=== PATIENT | male | born 1955 | race Hispanic/Latino ===

== ENCOUNTER 2019-10-08 | Emergency (ER) | payer OTHER | END 2019-10-08 11:08 | disposition home or self-care (01) | CPT/HCPCS: 99283 ==

== ENCOUNTER 2021-01-23 13:02 | Day surgery (SDC) | payer OTHER ==
--- NOTE | 2021-01-20 13:59 | RAD REPORT ---
EXAM DESCRIPTION: RAD - Chest Pa And Lat (2 Views) - 01/20/2021 1:51 pm CLINICAL HISTORY: left heart cathpreop chest exam COMPARISON: None TECHNIQUE: Frontal and lateral views of the chest were obtained. FINDINGS: The lungs are clear. Heart size is normal and central vasculature is within normal limit s. No pleural effusion or pneumothorax seen. No acute bony finding noted. No aortic abnormality. IMPRESSION: No acute cardiopulmonary process.
[2021-01-20 14:14] LABS: Absolute Lymphocytes (CBC) 2.6 K/uL (0.7-4.9); Basophils % 1.8 % (0-1.3); Hematocrit 31.6 % (39.6-49.0); Lymphocytes % 31.8 % (15.3-44.8); MPV 7.9 fL (7.6-11.3); RBC Red Blood Cell Count 3.55 M/uL (4.33-5.43)
[2021-01-20 14:18] LABS: Protime INR 0.95
[2021-01-20 14:22] LABS: Potassium 4.8 mmol/L (3.5-5.1)
[~2021-01-23 13:02] MED LIST: HEPA 1000U/500MLS 2,000 UNIT/1,000 ML BAG IV ONE
[2021-01-23] MEDS ORDERED: NA CHLORIDE 0.9% 500 ML ONE (15:25)
[2021-01-23 16:09] VITALS: TEMP 97.8
[2021-01-23] MEDS ORDERED: MIDAZOLAM HCL 2 MG/2 ML INJ ONE (16:41)
[2021-01-23] MEDS ORDERED: HEPARIN 5000 UNIT/ML 1 ML VIAL ONE (16:41)
[2021-01-23] MEDS ORDERED: FENTANYL CITR 100 MCG/2 ML ONE (16:42)
[2021-01-23] MEDS ORDERED: ATROPINE SULF 1 MG/10 ML SYR IV ONE (16:42)
[2021-01-23] MEDS ORDERED: VERAPAMIL HCL 10 MG/4 ML VIAL IV ONE (16:42)
[2021-01-23] MEDS ORDERED: HEPA 1000U/500MLS 1,000 UNIT/500 ML BAG IV ONE (17:26)
[2021-01-23 18:20] VITALS: O2SAT 99
--- NOTE | 2021-01-23 18:59 | OP ---
Date of Procedure: 01/23/2021 Surgeon: JULIO C HOLM Procedures Performed: 1.Selective coronary angiogram. 2.Evidence of an LAD. Indication: Unstable angina. Access: Right radial artery 6-Danish closed with TR band. Complications: None. Bleeding: Less than 10 mL. Description Of Procedure: After risks, benefits, alternatives were explained, the patient agreed to the procedure and signed informed consent and then we accessed the right radial artery using eGenerationsi c micropuncture kit, placed a 6-Danish slender sheath and then we took a 5-Danish [place] 4.0 into the aortic root, engaged left main and right coronary artery, took standard views and then I took ___ left 3.5 into the aortic root over a J-wire, engaged left main and then gave systemic heparin to assure ACT level above 250 and gave 180 of Brilinta and then took a Run-Through wire across this area of stenosis of the LAD and tried to pass IVUS in the left main and it was patent with some calcifica tions and also heavily calcified stenosis in the mid LAD where the IVUS catheter would get stuck. De cided to abort the procedure for a PCI with atherectomy, so we removed the wire and took final angiog stacey. There were no complications. Then, we removed the catheter and sheath and placed TR band. Findings: 1.Left main; large with luminal irregularities. 2.LAD; mid severe 90% to 95% stenosis, heavily calcified, followed by 2 focal mid lesions 80% each a nd heavily calcified with BRANDIN-3 flow in the vessel. Diagonal branches are patent. 3.Left circumflex; large, dominant with ostial OM1 branch 60% stenosis and distal left circumflex 50 % stenosis. 4.RCA; very small, non-dominant. No significant disease. Conclusion: Severe LAD stenosis, heavily calcified. Plan: Transfer to [place] for atherectomy and PCI of the mid LAD tomorrow. The patient will be high risk due to the unstable angina symptoms and severe stenosis of the LAD and to be done as an outpati ent. SR/MODL Voice ID: [id number] Report ID: [id number]
[2021-01-23 21:04] VITALS: BP 113/50
== END 2021-01-23 21:39 | disposition short-term general hospital (02) ==
LOC: CCL 13:02
PROVIDERS: ATTEND Internal Medicine
DX: I25.110 Atherosclerotic heart disease of native coronary artery with unstable angina pectoris (principal); I10 Essential (primary) hypertension; R55 Syncope and collapse; E11.9 Type 2 diabetes mellitus without complications; Z87.891 Personal history of nicotine dependence; Z79.899 Other long term (current) drug therapy; Z88.0 Allergy status to penicillin
CPT/HCPCS: 85025; 80048; 36415; 85610; 82947 ×2; 85730; 71046; 92978; 93458; C1893; J1644 ×3; J2250; J3010; J7040

== ENCOUNTER 2021-05-16 14:53 | Emergency (ER) | payer OTHER ==
--- OUTSIDE RECORDS SUMMARY | 2021-05-16 14:56 | XMS REPORT | Continuity of Care Document ---
:1955 Author Organization [facility] t Address [address] [place] [address] Care Team Providers Name Role Phone Hilary Quesada Primary Care Physician LUCRETIA Attending Clinician Unavailable Rehab, Cardiac Attending Clinician Unavailable Sergio ELLINGTON Attending Clinician Cecelia Jimenez Attending Clinician Unavailable LUCRETIA Admitting Clinician Unavailable RICHIE Admitting Clinician Unavailable ABEL POWELL Admitting Clinician Unavailable Payers Payer Name Policy Type Policy Number Effective Date Expiration Date Dolly green [employer] [id number] 2020 00:00:00 Problems Condition Condition Condition Status Onset Resolution Last Treating Co mments Source Name Details Category Date Date Treatment Clinician Date 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 2020-0 U nivers protein-ca protein-ca 9-29 it y of [facility] 00:00: [place] malnutriti malnutriti 00 Me dical on on Branch Pyelonephr Pyelonephr Disease Active 2020-0 U nivers itis itis 9-22 ity of 00:00: [place] 00 Medical Branch Allergies, Adverse Reactions, Alerts Allergy Allergy Status Severity Reaction(s) Onset Inactive Treating Comm ents Source Name Type Date Date Clinician Penicill Propensi Active Hives Univer s ins ty to 03-21 ity of adverse 00:00: [place] reaction 00 Medical s Branch Penicill DA Active U [facility]ES [facility] ins 01-27 [place] [facility] Penicill DA Active U [facility] ins 01-27 [place] 00:[facility]: [facility] PENICILL Allergy Active High Hives [facility] INS 01-23 00:00: 00 Social History Social Habit Start Date Stop Date Quantity Comments Source History of tobacco Cigarette Smoker University of use [facility] History SDAL University o f Alcohol Frequency [facility] edical History [facility] University o f Alcohol Std Drinks [facility] History [facility] o f Alcohol Binge [facility] al [place] Exposure to Not sure University of SARS-CoV-2 (event) [facility] Alcohol intake 2021-04-27 2021-04-27 Ex-drinker University of 00:00:00 00:00:00 (finding) [facility] Cigarettes smoked 2021-03-23 2021-03-23 Univers ity of current (pack per 00:00:00 00:00:00 ) - Reported Branch Cigarette 2021-03-23 2021-03-23 University of pack-years 00:00:00 00:00:00 [facility] Alcohol Comment 2021-03-23 2021-03-23 quit drinking Univer sity of 00:00:00 00:00:00 about 2 months [facility] ago. Used to Branch drink 1-2 beers on the weekend Tobacco Comment 2021-03-23 2021-03-23 Patient quit Univers ity of 00:00:00 00:00:00 smoking in his [facility] 20s. Branch Sex [birth year] Universit y of 00:00:00 00:00:00 [facility] Smoking Status Start Date Stop Date Source Former smoker 2021-03-23 00:00:00 2021-03-23 00:00:00 Universi ty of [facility] Medications Ordered Filled Start Stop Current Ordering Indication Dosage Frequency Signature Comments Components Source Medication Medication Date Date Medication? Clinician (SIG) Name Name insulin 2020-07- Yes [id number] [id number] inject 8 U nivers lispro 0-19 04-18 Units ity of (HUMALOG 00:00: 04:59 under the [place] as TRINI 00 :00 skin daily Medical KWIKPEN for 180 Branch U-100) 100 days. unit/mL inph Cholecalcif 2020-07 Yes 1{capsu Take 1 U nivers ernie, 0-13 le} capsule by ity of Vitamin D3, 06:00: mouth [place] 50 mcg 05 daily. Medical (2,000 Branch unit) capsule multivit,th 2020-07 Yes 1{tbl} Take 1 Un hallie x,calcium,i 0-13 tablet by ity of deanne,mins 06:00: mouth [place] (MULTIVITAM 05 daily. Medica l IN AND Branch MINERAL ORAL) timoloL 0.5 2020-07 Yes 1[drp] Place 1 U nivers % 0-13 Drop in ity of ophthalmic 06:00: [place] eyes [place] solution 05 2 (two) Medical times Branch daily. vitamin 2020-07 Yes [id number] 1000ug Take 1 Un hallie B-12 1,000 0-12 tablet by ity of mcg tablet 00:00: mouth [place] 00 daily. Medical Branch amiodarone 2020-07 Yes [id number] 200mg Take 1 Univers 200 mg 0-12 tablet by ity of tablet 00:00: mouth [place] 00 daily. Medical Branch foLIC acid 2020-07 Yes [id number] 1mg Take 1 U nivers 1 mg tablet 0-12 tablet by ity of 00:00: mouth [place] 00 daily. Medical Branch pantoprazol 2020-07 Yes [id number] 40mg Take 1 Univers e 40 mg EC 0-12 tablet by ity of tablet 00:00: mouth [place] 00 daily. Medical Branch aspirin 81 2020-07- Yes [id number] 81mg Take 1 Univers mg chewable 0-12 04-11 tablet by it y of tablet 00:00: 04:59 mouth [place] 00 :00 daily for Medical 180 days. Branch rosuvastati 2020-07 Yes [id number] 40mg Take 1 Univers n 40 mg 0-11 tablet by ity of tablet 00:00: mouth at [place] 00 bedtime. Medical Branch traZODone 2020-07 Yes [id number] 50mg Take 1 Un hallie 50 mg 0-11 tablet by ity of tablet 00:00: mouth at [place] 00 bedtime. Medical Branch ticagrelor 2020-07 Yes [id number] 90mg Take 1 U nivers 90 mg 0-11 tablet by ity of tablet 00:00: mouth 2 (two) Medical times Branch daily. midodrine 2020-07 Yes [id number] 10mg Take 1 Un hallie 10 mg 0-11 tablet by ity of tablet 00:00: mouth 3 [place] (three) Medical times Branch daily. nitroglycer 2020-[id number] 1 Univers in 0.4 mg 0-11 tablet ity of sublingual 00:00: under the [place] tablet 00 tongue Medical every 5 Branch (five) minutes as needed for Chest pain. semaglutide 2020-07 Yes [id number] 3mg Take 3 mg Univers (RYBELSUS) 0-11 by mouth ity o f 3 mg Tab 00:00: daily. Medical Branch blood sugar 2020-07 Yes [id number] Use as Univers diagnostic 0-11 directed ity o f (BLOOD 00:00: [place] GLUCOSE 00 Medical TEST) strip Branch lancets 30 2020-07 Yes [id number] Use as U nivers gauge Misc 0-11 directed ity o f 00:00: [place] 00 Medical Branch Insulin 2020-07 Yes [id number] Use as Univ ers Yoder, 0-11 directed ity of Disposable, 00:00: [place] (BD INSULIN 00 Medical PEN NEEDLE Branch UF) 31 gauge x 5/16" Ndle Insulin 2020-07 Yes [id number] 25U inject 25 U nivers Glargine 0-11 Units ity of (LANTUS 00:00: under the [place] SOLOSTAR 00 skin daily Medic al U-100 before Branch INSULIN) breakfast. 100 unit/mL Follow (3 mL) instructio injection ns on your print out discharge instructio ns insulin 2020-07- Yes [id number] 8U inject 8 U nivers aspart 0-11 01-10 Units ity of U-100 00:00: 05:59 under the [place] (NOVOLOG 00 :00 skin 3 Medical FLEXPEN (three) Branch U-100 times INSULIN) daily with 100 unit/mL meals for (3 mL) 90 days. injection Vital Signs Vital Name Observation Time Observation Value Comments Source HEIGHT 2021-01-23 23:50:00 157.5 cm WEIGHT 2021-01-23 23:50:00 52.935 kg HEIGHT 2021-01-23 23:50:00 157.5 cm WEIGHT 2021-01-23 23:50:00 52.935 kg Procedures Procedure Date / Time Performed Performing Clinician [facility] e POCT GLUCOSE 2021-05-08 21:07:00 Robbie Hill [facility] (AUTOMATED) Medical Branch Encounters Start End Encounter Admission Attending Care Care Encounter Source Date/Time Date/Time Type Type Clinicians Facility Department ID 2021-01-23 Inpatient ER LUCRETIA, [facility] Cardiology [id number] [facility] 22:53:00 NEVAEH 2021-05-08 2021-05-08 Diagnostic Medical Sonographer Rehab, Adc Cardiac [facility] 1.2. [id number] [facility] 15:03:16 16:06:30 Visit Robbie Hill [place] [id number] ity [facility] [id number] [place] PROFESS[place] [phone] Mi dical NAL 060 Branch BUILDING 2021-02-01 2021-02-01 [id number]-20 [facility] 12:23:00 17:10:00 Wm [id number] [facility] Results Test Description Test Time Test Comments Results Result Comments Source POCT GLUCOSE (AUTOMATED) 2021-05-08 21:10:33 Test Item Value Reference Range Interpretation Comme nts POCT GLU (test code = 0998722185) 131 mg/dL 70-110 H Lab Interpretation (test code = 23228-9) [facility]00 Test Item Value Reference Range Interpretation Comments GLUBED (test code = GLUBED) 113 MG/DL 70-105 H COAGULATION TIME [id number] 11:32:00 Test Item Value Reference Range Interpretation Comments COAGULATION TIME ACTIVATED (test 202 SECONDS 74-137 H code = ACT) COAGULATION TIME [id number] 11:02:00 Test Item Value Reference Range Interpretation Comments COAGULATION TIME ACTIVATED (test 202 SECONDS 74-137 H code = ACT) POCT-GLUCOSE [id number] 08:41:00 Test Item Value Reference Range Interpretation Comments POC-GLUCOSE METER 126 mg/dL 70-110 H : TESTED A T [facility] 6720 (BEAKER) (test code = HERO Mehta [place], 1538) [address]: Sizing Machine Tender/Techni taty ID = [id number] for Noemi Araya CBC W/PLT COUNT & AUTO [id number] 05:02:00 Test Item Value Reference Range Interpretation Comments WHITE BLOOD CELL COUNT (BEAKER) 12.4 K/ L 3.5-10.5 H (test code = 775) RED BLOOD CELL COUNT (BEAKER) 3.88 M/ L 4.63-6.08 L (test code = 761) HEMOGLOBIN (BEAKER) (test code = 11.4 GM/DL 13.7-17.5 L 410) HEMATOCRIT (BEAKER) (test code = 35.4 % 40.1-51.0 L 411) MEAN CORPUSCULAR VOLUME (BEAKER) 91.2 fL 79.0-92.2 (test code = 753) MEAN CORPUSCULAR HEMOGLOBIN 29.4 pg 25.7-32.2 (BEAKER) (test code = 751) MEAN CORPUSCULAR HEMOGLOBIN CONC 32.2 GM/DL 32.3-36.5 L (BEAKER) (test code = 752) RED CELL DISTRIBUTION WIDTH 13.4 % 11.6-14.4 (BEAKER) (test code = 412) PLATELET COUNT (BEAKER) (test 331 K/CU MM 150-450 code = 756) MEAN PLATELET VOLUME (BEAKER) 9.9 fL 9.4-12.4 (test code = 754) NUCLEATED RED BLOOD CELLS 0 /100 WBC 0-0 (BEAKER) (test code = 413) NEUTROPHILS RELATIVE PERCENT 53 % (BEAKER) (test code = 429) LYMPHOCYTES RELATIVE PERCENT 27 % (BEAKER) (test code = 430) MONOCYTES RELATIVE PERCENT 8 % (BEAKER) (test code = 431) EOSINOPHILS RELATIVE PERCENT 11 % (BEAKER) (test code = 432) BASOPHILS RELATIVE PERCENT 1 % (BEAKER) (test code = 437) NEUTROPHILS ABSOLUTE COUNT 6.63 K/ L 1.78-5.38 H (BEAKER) (test code = 670) LYMPHOCYTES ABSOLUTE COUNT 3.31 K/ L 1.32-3.57 (BEAKER) (test code = 414) MONOCYTES ABSOLUTE COUNT (BEAKER) 0.94 K/ L 0.30-0.82 H (test code = 415) EOSINOPHILS ABSOLUTE COUNT 1.32 K/ L 0.04-0.54 H (BEAKER) (test code = 416) BASOPHILS ABSOLUTE COUNT (BEAKER) 0.15 K/ L 0.01-0.08 H (test code = 417) IMMATURE GRANULOCYTES-RELATIVE 1 % 0-1 PERCENT (BEAKER) (test code = 2801) BASIC METABOLIC [id number] 05:01:00 Test Item Value Reference Range Interpretation Comments SODIUM (BEAKER) 138 meq/L 136-145 (test code = 381) POTASSIUM (BEAKER) 4.0 meq/L 3.5-5.1 (test code = 379) CHLORIDE (BEAKER) 104 meq/L 98-107 (test code = 382) CO2 (BEAKER) (test 24 meq/L 22-29 code = 355) BLOOD UREA NITROGEN 28 mg/dL 7-21 H (BEAKER) (test code = 354) CREATININE (BEAKER) 1.12 mg/dL 0.57-1.25 (test code = 358) GLUCOSE RANDOM 73 mg/dL 70-105 (BEAKER) (test code = 652) CALCIUM (BEAKER) 9.3 mg/dL 8.4-10.2 (test code = 697) EGFR (BEAKER) (test 65 mL/min/1.73 ESTIMA ALICIA GFR IS code = 1092) sq m NOT ACCURATE CREATININE CLEARANCE IN PREDICTING GLOMERULAR FILTRATION RATE . ESTIMATED GFR I S NOT APPLICABLE FOR DIALYSIS PATIEN TS. Sizing Machine Tender ID - JENNIFER [id number] 05:01:00 Test Item Value Reference Range Interpretation Comments MAGNESIUM (BEAKER) (test code = 1.9 mg/dL 1.6-2.6 627) Sizing Machine Tender ID - JENNIFER MPOCT-GLUCOSE [id number] 19:04:00 Test Item Value Reference Range Interpretation Comments POC-GLUCOSE METER 276 mg/dL 70-110 H [facility] ([facility] (test code = [place], 1538) [address]: Sizing Machine Tender/Techni taty ID = [id number] for Noemi Araya POCT-GLUCOSE [id number] 18:01:00 Test Item Value Reference Range Interpretation Comments POC-GLUCOSE METER 325 mg/dL 70-110 H : TESTED A T [facility] 6720 (BEAKER) (test code = SAMANTHAOH Janine [place], 1538) [address]: Sizing Machine Tender/Techni taty ID = [id number] for Noemi Araya POCT-GLUCOSE [id number] 13:16:00 Test Item Value Reference Range Interpretation Comments POC-GLUCOSE METER 239 mg/dL 70-110 H : TESTED A T [facility] 6720 (BEAKER) (test code = HERO Mehta [facility], 1538) [address]: Sizing Machine Tender/Techni taty ID = [id number] for Noemi Araya HEMOGLOBIN [id number] 10:25:00 Test Item Value Reference Range Interpretation Comments HEMOGLOBIN A1C (BEAKER) (test code = 9.9 % 4.3-6.1 H 368) BASIC METABOLIC [id number] 07:13:00 Test Item Value Reference Range Interpretation Comments SODIUM (BEAKER) 135 meq/L 136-145 L (test code = 381) POTASSIUM (BEAKER) 4.2 meq/L 3.5-5.1 (test code = 379) CHLORIDE (BEAKER) 103 meq/L 98-107 (test code = 382) CO2 (BEAKER) (test 24 meq/L 22-29 code = 355) BLOOD UREA NITROGEN 21 mg/dL 7-21 (BEAKER) (test code = 354) CREATININE (BEAKER) 1.06 mg/dL 0.57-1.25 (test code = 358) GLUCOSE RANDOM 287 mg/dL 70-105 H (BEAKER) (test code = 652) CALCIUM (BEAKER) 9.3 mg/dL 8.4-10.2 (test code = 697) EGFR (BEAKER) (test 70 mL/min/1.73 ESTIMA ALICIA GFR IS code = 1092) sq m NOT ACCURATE CREATININE CLEARANCE IN PREDICTING GLOMERULAR FILTRATION RATE . ESTIMATED GFR I S NOT APPLICABLE FOR DIALYSIS PATIEN TS. Sizing Machine Tender ID - JENNIFER [id number] 07:13:00 Test Item Value Reference Range Interpretation Comments MAGNESIUM (BEAKER) (test code = 1.8 mg/dL 1.6-2.6 627) Sizing Machine Tender ID - JENNIFER MLIPID [id number] 07:13:00 Test Item Value Reference Range Interpretation Comments TRIGLYCERIDES (BEAKER) (test code = 124 mg/dL 540) CHOLESTEROL (BEAKER) (test code = 168 mg/dL 631) HDL CHOLESTEROL (BEAKER) (test code 47 mg/dL = 976) LDL CHOLESTEROL CALCULATED (BEAKER) 96 mg/dL (test code = 633) Triglyceride Reference Range: Low Risk <150 Borderline 150-199 High Risk 200-499 Very High Risk >=500Cholesterol Reference Range: Low Risk <200 Borderline 200-239 High Risk >240HDL Cholesterol Reference Range: Low Risk >=60 High Risk <40LDL Cholesterol Reference Range: Optimal <100 Near Optimal 100-129 Borderline 130-159 High 160-189 Very High >=190 Sizing Machine Tender ID - JENNIFER MCBC W/PLT COUNT & AUTO [id number] 06:31:00 Test Item Value Reference Range Interpretation Comments WHITE BLOOD CELL COUNT (BEAKER) 8.8 K/ L 3.5-10.5 (test code = 775) RED BLOOD CELL COUNT (BEAKER) 3.67 M/ L 4.63-6.08 L (test code = 761) HEMOGLOBIN (BEAKER) (test code = 10.7 GM/DL 13.7-17.5 L 410) HEMATOCRIT (BEAKER) (test code = 32.9 % 40.1-51.0 L 411) MEAN CORPUSCULAR VOLUME (BEAKER) 89.6 fL 79.0-92.2 (test code = 753) MEAN CORPUSCULAR HEMOGLOBIN 29.2 pg 25.7-32.2 (BEAKER) (test code = 751) MEAN CORPUSCULAR HEMOGLOBIN CONC 32.5 GM/DL 32.3-36.5 (BEAKER) (test code = 752) RED CELL DISTRIBUTION WIDTH 13.3 % 11.6-14.4 (BEAKER) (test code = 412) PLATELET COUNT (BEAKER) (test 308 K/CU MM 150-450 code = 756) MEAN PLATELET VOLUME (BEAKER) 10.1 fL 9.4-12.4 (test code = 754) NUCLEATED RED BLOOD CELLS 0 /100 WBC 0-0 (BEAKER) (test code = 413) NEUTROPHILS RELATIVE PERCENT 51 % (BEAKER) (test code = 429) LYMPHOCYTES RELATIVE PERCENT 30 % (BEAKER) (test code = 430) MONOCYTES RELATIVE PERCENT 9 % (BEAKER) (test code = 431) EOSINOPHILS RELATIVE PERCENT 8 % (BEAKER) (test code = 432) BASOPHILS RELATIVE PERCENT 2 % (BEAKER) (test code = 437) NEUTROPHILS ABSOLUTE COUNT 4.43 K/ L 1.78-5.38 (BEAKER) (test code = 670) LYMPHOCYTES ABSOLUTE COUNT 2.63 K/ L 1.32-3.57 (BEAKER) (test code = 414) MONOCYTES ABSOLUTE COUNT (BEAKER) 0.81 K/ L 0.30-0.82 (test code = 415) EOSINOPHILS ABSOLUTE COUNT 0.71 K/ L 0.04-0.54 H (BEAKER) (test code = 416) BASOPHILS ABSOLUTE COUNT (BEAKER) 0.13 K/ L 0.01-0.08 H (test code = 417) IMMATURE GRANULOCYTES-RELATIVE 1 % 0-1 PERCENT (BEAKER) (test code = 2801) POC [id number] 12:08:07 Test Item Value Reference Range Interpretation Comments Glucose POC (test 100 mg/dL 70-115 If you con lease analyst your code = Glucose POC) patient critically ill, the Caleb-Accu Check Infrom II meter should not be used for Glucose determination. Draw a venous Glucose and send to the main Lab for analysis.
[2021-05-16] MEDS ORDERED: ONDANSETRON 4 MG/2 ML VIAL ONE ×2 (15:40→18:32)
[2021-05-16 16:02] LABS: Basophils % 1.1 % (0-1.3); Hematocrit 27.7 % (39.6-49.0); Lymphocytes % 16.9 % (15.3-44.8); MPV 7.9 fL (7.6-11.3); RBC Red Blood Cell Count 2.89 M/uL (4.33-5.43)
[2021-05-16 16:38] LABS: Protime INR 1.09
--- NOTE | 2021-05-16 16:41 | RAD REPORT ---
EXAM DESCRIPTION: RAD - Chest Single View - 05/16/2021 4:25 pm CLINICAL HISTORY: SOB COMPARISON: Chest Pa And Lat (2 Views) dated 01/20/2021 FINDINGS: Lines: Right IJ approach dialysis catheter. The tip overlies the superior cavoatrial junct ion . Lungs: No evidence of edema or pneumonia. Pleural: No significant pleural effusions or pneumothorax. Cardiac: The heart size is within normal limits. Bones: No acute fractures. Other: IMPRESSION: No acute cardiopulmonary disease.
[2021-05-16 16:55] LABS: ALT/SGPT 33 U/L (12-78); AST/SGOT 21 U/L (15-37); Albumin 3.2 g/dL (3.4-5.0); Alkaline Phosphatase 134 U/L (45-117); BUN Blood Urea Nitrogen 8 mg/dL (7-18); Bicarbonate 25 mmol/L (21-32); Bilirubin Direct < 0.1 mg/dL (0-0.2); Bilirubin Total 0.2 mg/dL (0.2-1.0); Glucose Level 67 mg/dL (74-106); Lipase 70 U/L (73-393); Magnesium 1.8 mg/dL (1.8-2.4); NT PRO-BNP 18578 pg/mL (<125); Protein, Total 6.8 g/dL (6.4-8.2); Sodium Level 138 mmol/L (136-145); Troponin (Emerg Dept Use Only) 0.06 ng/mL (0.0-0.045)
--- NOTE | 2021-05-16 18:30 | RAD REPORT ---
EXAM DESCRIPTION: CTAbdomen Pelvis Wo Contrast - 05/16/2021 6:07 pm CLINICAL HISTORY: vomiting COMPARISON: No comparisons TECHNIQUE: CT of the abdomen and pelvis was performed. All CT scans are performed using dose optimization technique as appropriate and may include automated exposure control or mA/KV adjustment according to patient size. FINDINGS: Lower chest: Circumferential thickened distal esophagus suggesting esophagitis. Liver: No acute abnormality or suspicious lesions. Biliary: No biliary ductal dilatation. Stomach: No significant focal abnormality. Duodenum: No significant focal abnormality. Pancreas: No significant abnormality. Spleen: No significant abnormality. Adrenal: No suspicious lesions. Kidney/ureter: No hydronephrosis. No renal calculi. Retroperitoneum: No retroperitoneal adenopathy. Vascular: No aneurysm. Bowel: Normal appendix. Nonspecific distended small bowel with fluid.. Peritoneum: Small volume of pelvic free fluid. Small bowel containing left inguinal hernia. Small rig ht inguinal hernia. Bladder: Grossly unremarkable. Reproductive: No adnexal masses. Bones: No acute fracture. Multilevel degenerative changes are present in the spine. Other: n/a IMPRESSION: Question gastroenteritis but no bowel obstruction or other acute findings identified. No rmal appendix. Small volume of pelvic free fluid is abnormal but nonspecific.
--- NOTE | 2021-05-16 19:00 | ER ---
Nurse's Notes [facility] Name: Raymond Rizvi Age: 65 yrs Sex: Male : 1955 Arrival Date: 05/16/2021 Time: 14:58 Bed 11 Private MD: Shamir Rodriguez Diagnosis: Vomiting Presentation: 05/16 15:16 Chief complaint: Patient states: N/V/D for 4 days. Sent in by PCP for eval. Coronavirus ld1 screen: Vaccine status: Patient reports receiving the 2nd dose of the covid vaccine. Client denies travel out of the [place] in the last 14 days. diarrhea, nausea, vomiting. Client presents with at least one sign or symptom that may indicate coronavirus-19. Standard/surgical mask placed on the client. Ebola Screen: Patient denies travel to an Ebola-affected area in the 21 days before illness onset. Initial Sepsis Screen: Does the patient meet any 2 criteria? No. Patient's initial sepsis screen is negative. Does the patient have a suspected source of infection? No. Patient's initial sepsis screen is negative. Risk Assessment: Do you want to hurt yourself or someone else? Patient reports no desire to harm self or others. Onset of symptoms was May 13, 2021. 15:16 Method Of Arrival: Ambulatory ld1 15:16 Acuity: BIRD 3 ld1 Historical: - Allergies: 15:14 PENICILLINS; ld1 - PMHx: 15:14 Diabetes - NIDDM; 4 heart attacks; dialysis T, Th, Sat; ld1 - PSHx: 15:14 Coronary artery bypass graft; ld1 - Immunization history:: Client reports receiving the 2nd dose of the Covid vaccine. - Social history:: Smoking status: Patient denies any tobacco usage or history of. Assessment: 15:39 General: Appears in no apparent distress. uncomfortable, Behavior is calm, cooperative, ld1 appropriate for age. Pain: Denies pain. Neuro: Level of Consciousness is awake, alert, obeys commands, Oriented to person, place, time, situation. Neuro:. Cardiovascular: Capillary refill < 3 seconds Patient's skin is warm and dry. Respiratory: Airway is patent Respiratory effort is even, unlabored, Respiratory pattern is regular, symmetrical. GI: Abdomen is flat, non-distended, Reports nausea, vomiting. : No signs and/or symptoms were reported regarding the genitourinary system. EENT: No signs and/or symptoms were reported regarding the EENT system. Derm: No signs and/or symptoms reported regarding the dermatologic system. Musculoskeletal: No signs and/or symptoms reported regarding the musculoskeletal system. 17:16 Reassessment: Patient appears in no apparent distress at this time. Patient is alert, ld1 oriented x 3, equal unlabored respirations, skin warm/dry/pink. Patient denies pain at this time. Patient states feeling better. 18:30 Reassessment: Patient appears in no apparent distress at this time. Patient and/or vg1 family updated on plan of care and expected duration. Pain level reassessed. Patient is alert, oriented x 3, equal unlabored respirations, skin warm/dry/pink. Pt stated is 'starting to feel nauseous again." Provider notified. Vital Signs: 15:16 BP 127 / 56; Pulse 69; Resp 16; Temp 98.3; Pulse Ox 100% ; Weight 55.79 kg; Height 5 ld1 ft. 2 in. (157.48 cm); Pain 0/10; 15:39 BP 129 / 60; Pulse 72; Resp 17; Pulse Ox 100% on R/A; Pain 0/10; ld1 17:16 BP 103 / 55; Pulse 75; Resp 14; Pulse Ox 100% on R/A; Pain 0/10; ld1 18:30 BP 136 / 65; Pulse 72; Resp 18; Pulse Ox 98% on R/A; vg1 15:16 Body Mass Index 22.50 (55.79 kg, 157.48 cm) ld1 ED Course: 14:58 Patient arrived in ED. am2 14:58 Sue Thomas MD is Private Physician. am2 14:58 Shamir Rodriguez DO is Private Physician. am2 15:14 Arm band placed on Patient placed in an exam room, on a stretcher. ld1 15:17 Triage completed. ld1 15:34 Vince Anne PA is PHCP. jmm 15:34 Jose White MD is Attending Physician. jmm 15:39 Pooja Baldwin, SOUMYA is Primary Nurse. ld1 16:25 XRAY Chest (1 view) In Process Unspecified. EDMS 18:07 CT Abd/Pelvis - Without Contrast In Process Unspecified. EDMS 18:59 Shamir Rodriguez DO is Referral Physician. jmm 19:11 No provider procedures requiring assistance completed. IV discontinued, intact, vg1 bleeding controlled, No redness/swelling at site. Pressure dressing applied. Administered Medications: 15:52 Drug: Zofran (Ondansetron) 4 mg Route: IVP; Site: right forearm; ld1 16:50 Follow up: Response: No adverse reaction; Nausea is decreased vg1 18:35 Drug: Zofran (Ondansetron) 4 mg Route: IVP; Site: right forearm; vg1 19:10 Follow up: Response: No adverse reaction; Marked relief of symptoms vg1 Outcome: 18:59 Discharge ordered by MD. jmm 19:11 Discharged to home ambulatory, with family. vg1 19:11 Condition: stable 19:11 Discharge instructions given to patient, family, Instructed on discharge instructions, follow up and referral plans. medication usage, Demonstrated understanding of instructions, follow-up care, medications, Prescriptions given X 2. 19:12 Patient left the ED. vg1 Signatures: Dispatcher [employer] EDMS Vince Anne PA PA Pippa Vargas am2 Sheryl Anderson, RN RN vg1 Pooja Baldwin RN RN ld1 Corrections: (The following items were deleted from the chart) 17:16 17:16 BP 103 / 55; Pulse 75bpm; Resp 14bpm; Pulse Ox 100% RA; ld1 ld1
--- NOTE | 2021-05-16 19:00 | EDPHYS ---
Physician Documentation [facility] Name: Raymond Rizvi Age: 65 yrs Sex: Male : 1955 Arrival Date: 05/16/2021 Time: 14:58 Bed 11 Private MD: Shamir Rodriguez ED Physician Jose White HPI: 05/16 15:44 This 65 yrs old Male presents to ER via Ambulatory with complaints of jmm Nausea/Vomiting. 15:44 The patient presents to the emergency department with nausea, vomiting. Onset: The jmm symptoms/episode began/occurred acutely, 3 day(s) ago. Possible causes: unknown. The symptoms are aggravated by nothing. The symptoms are alleviated by nothing. Associated signs and symptoms: Pertinent positives: anorexia, Pertinent negatives: diarrhea. The patient has experienced similar episodes in the past. Historical: - Allergies: 15:14 PENICILLINS; ld1 - PMHx: 15:14 Diabetes - NIDDM; 4 heart attacks; dialysis T, Th, Sat; ld1 - PSHx: 15:14 Coronary artery bypass graft; ld1 - Immunization history:: Client reports receiving the 2nd dose of the Covid vaccine. - Social history:: Smoking status: Patient denies any tobacco usage or history of. ROS: 15:44 Constitutional: Negative for fever, chills, and weight loss, Cardiovascular: Negative jmm for chest pain, palpitations, and edema, Respiratory: Negative for shortness of breath, cough, wheezing, and pleuritic chest pain. 15:44 Abdomen/GI: Positive for vomiting. 15:44 All other systems are negative. Exam: 15:44 Constitutional: This is a well developed, well nourished patient who is awake, alert, jmm and in no acute distress. Head/Face: atraumatic. Eyes: EOMI, no conjunctival erythema appreciated ENT: Moist Mucus Membranes Neck: Trachea midline, Supple Chest/axilla: Normal chest wall appearance and motion. Cardiovascular: Regular rate and rhythm. No edema appreciated Respiratory: Normal respirations, no respiratory distress appreciated 15:44 Back: Normal ROM Skin: General appearance color normal MS/ Extremity: Moves all extremities, no obvious deformities appreciated, no edema noted to the lower extremities Neuro: Awake and alert, normal gait Psych: Behavior is normal, Mood is normal, Patient is cooperative and pleasant 15:44 Abdomen/GI: Inspection: abdomen appears normal, Bowel sounds: normal, Palpation: soft, nontender, in all quadrants. Vital Signs: 15:16 BP 127 / 56; Pulse 69; Resp 16; Temp 98.3; Pulse Ox 100% ; Weight 55.79 kg; Height 5 ld1 ft. 2 in. (157.48 cm); Pain 0/10; 15:39 BP 129 / 60; Pulse 72; Resp 17; Pulse Ox 100% on R/A; Pain 0/10; ld1 17:16 BP 103 / 55; Pulse 75; Resp 14; Pulse Ox 100% on R/A; Pain 0/10; ld1 18:30 BP 136 / 65; Pulse 72; Resp 18; Pulse Ox 98% on R/A; vg1 15:16 Body Mass Index 22.50 (55.79 kg, 157.48 cm) ld1 MDM: 15:44 Patient medically screened. [facility] 18:58 Data reviewed: vital signs, nurses notes. Counseling: I had a detailed discussion with rosalia the patient and/or guardian regarding: the historical points, exam findings, and any diagnostic results supporting the discharge/admit diagnosis, lab results, radiology results, the need for outpatient follow up, to return to the emergency department if symptoms worsen or persist or if there are any questions or concerns that arise at home. ED course: Patient is alert and nontoxic in appearance in the ED. Abdomen is soft. CT reveals most likely a gastroenteritis type pattern. Will prescribe oral Pepcid and Carafate. Patient otherwise given strict return precautions will follow Dr. Bridgette kuo for reevaluation. Family understood and agrees to plan of care.. 05/16 15:44 Order name: Basic Metabolic Panel; Complete Time: 17:06 [facility] 05/16 15:44 Order name: CBC with Diff; Complete Time: 16:14 [facility] 05/16 15:44 Order name: LFT's; Complete Time: 17:06 [facility] 05/16 15:44 Order name: Magnesium; Complete Time: 17:06 [facility] 05/16 15:44 Order name: NT PRO-BNP; Complete Time: 17:06 [facility] 05/16 15:44 Order name: PT-INR; Complete Time: 16:39 [facility] 05/16 15:44 Order name: Troponin (emerg Dept Use Only); Complete Time: 17:06 [facility] 05/16 15:44 Order name: XRAY Chest (1 view); Complete Time: 16:46 [facility] 05/16 15:44 Order name: EKG; Complete Time: 15:45 [facility] 05/16 15:44 Order name: Cardiac monitoring; Complete Time: 16:08 [facility] 05/16 15:44 Order name: Lipase; Complete Time: 17:06 [facility] 05/16 17:46 Order name: CT Abd/Pelvis - Without Contrast; Complete Time: 18:31 [facility] 05/16 15:44 Order name: EKG - Nurse/Tech; Complete Time: 16:08 [facility] 05/16 15:44 Order name: IV Saline Lock; Complete Time: 15:53 [facility] 05/16 15:44 Order name: Labs collected and sent; Complete Time: 15:53 [facility] 05/16 15:44 Order name: O2 Per Protocol; Complete Time: 15:53 [facility] 05/16 15:44 Order name: O2 Sat Monitoring; Complete Time: 15:53 [facility] 05/16 16:07 Order name: Labs - recollect needed; Complete Time: 16:25 ss Administered Medications: 15:52 Drug: Zofran (Ondansetron) 4 mg Route: IVP; Site: right forearm; ld1 16:50 Follow up: Response: No adverse reaction; Nausea is decreased vg1 18:35 Drug: Zofran (Ondansetron) 4 mg Route: IVP; Site: right forearm; vg1 19:10 Follow up: Response: No adverse reaction; Marked relief of symptoms vg1 Disposition: 05/17 07:04 Co-signature as Attending Physician, Jose White MD I agree with the assessment and rn plan of care. Attestation: The patient's history, exam findings, diagnostics, and a summary of any interventions or procedures was reviewed in detail with Vince JERRY. Disposition Summary: 05/16/21 18:59 Discharge Ordered Location: Home [facility] Condition: Stable [facility] Diagnosis - Vomiting jmm Followup: jmm - With: Shamir Rodriguez DO - When: 1 - 2 days - Reason: Recheck today's complaints, Continuance of care, Re-evaluation by your physician Discharge Instructions: - Discharge Summary Sheet [facility] - Vomiting, Adult jmm Forms: - Medication Reconciliation Form jmm - Thank You Letter jmm - Antibiotic Education [facility] - Prescription Opioid Use [facility] Prescriptions: - Pepcid 20 mg Oral Tablet - take 1 tablet by ORAL route every 12 hours for 10 days; 20 tablet; Refills: 0, [facility] Product Selection Permitted - ondansetron 4 mg Oral tablet,disintegrating - take 2 tablet by ORAL route 3 times per day; 20 tablet; Refills: 0, Product [facility] Selection Permitted Signatures: Dispatcher [employer] Vince Upton PA PA jmm Nieto, Roman, MD MD rn Smirch, Shelby, RN RN ss Garcia, Victoria, RN RN vg1 Pooja Baldwin RN RN ld1
[2021-05-16 20:29] VITALS: TEMP 98.3
[2021-05-16 20:33] VITALS: BP 136/65; O2SAT 98
--- NOTE | 2021-05-17 16:59 | EKG ---
Test Date: 2021-05-16 Test Time: 16:03:01 [employer]urbine Engine Assembler: [place]ALE MEASUREMENT RESULTS: Intervals: Rate: 74 IL: 150 QRSD: 116 QT: 414 QTc: 459 [place]: P: 83 IL: 150 QRS: 56 T: 78 INTERPRETIVE STATEMENTS: Normal sinus rhythm Incomplete right bundle branch block Septal infarct, age undetermined Abnormal ECG Compared to ECG 05/16/2021 16:01:47 No significant changes Electronically Signed On 05-17-21 16:57:08 [employer] by Timothy Vargas
--- NOTE | 2021-05-17 16:59 | EKG ---
Test Date: 2021-05-16 Test Time: 16:01:47 Specimen Collector: PASQUALE MEASUREMENT RESULTS: Intervals: Rate: 73 MD: 156 QRSD: 116 QT: 436 QTc: 480 [place]: P: 74 MD: 156 QRS: 56 T: 78 INTERPRETIVE STATEMENTS: Normal sinus rhythm Incomplete right bundle branch block Septal infarct, age undetermined Abnormal ECG No previous ECG available for comparison Electronically Signed On 05-17-21 16:57:09 [employer]INE SANDER by Timothy Vargas
== END 2021-05-16 19:12 | disposition home or self-care (01) ==
LOC: ER 14:53
DX: R11.10 Vomiting, unspecified (principal); E11.9 Type 2 diabetes mellitus without complications; Z99.2 Dependence on renal dialysis; Z95.1 Presence of aortocoronary bypass graft; Z88.0 Allergy status to penicillin
CPT/HCPCS: 93005 ×2; 85025; 80048; 36415; 83735; 85610; 80076; 84484; 83690; 83880; 74176; 71045; J2405 ×2